=== PATIENT | female | born 1990 | race Caucasian/White ===

== ENCOUNTER 2020-05-18 13:50 | Inpatient (IN) ==
[2020-05-18] MEDS ORDERED: OXYTOCIN 30 UNITS/500 ML BAG IV PRN ×2 (14:05→22:31)
[2020-05-18] MEDS ORDERED: PENICILLIN G POTASSIUM 3 MU in DEXTROSE 5% 100 ML IV PRN (14:05)
[2020-05-18] MEDS ORDERED: LACTATED RINGER'S 1,000 ML IV PRN (14:05)
[2020-05-18] MEDS ORDERED: PENICILLIN G POTASSIUM 6 MU in DEXTROSE 5% 250 ML IV ONE (14:30)
[2020-05-18 14:38] LABS: Hematocrit (blood only) 32.5 % (37-47); Mean Corpuscular Hemoglobin 28.8 pg (25-34); Mean Corpuscular Hgb Conc 33.8 g/dL (32-36); Mean Corpuscular Volume 85.1 fL (80-100); Mean Platelet Volume 10.5 fL (7.4-10.4); Platelet Count 262 K/uL (130-400); RDW Coefficient of Variation 19.7 % (11.5-14.5); RDW Standard Deviation 61.5 fL (36.4-46.3); Red Blood Count 3.82 M/uL (4.2-5.4); White Blood Count 17.27 K/uL (4.8-10.8)
--- NOTE | 2020-05-18 14:54 | Obstetrical Progress Note ---
Date of Service May 18, 2020 Assessment & Plan Admission and Anticipated Discharge Date Admission Date: May 18, 2020 Subjective Met pt and spouse Reviewed PNC Pt was sent from office FHR; CAT1 Ctx 2-3mins VE /-2 by Nurse Bedside sono ; VT + GBS - Started on PCN Results & Data ([facility]) Vital Signs (Past 12 Hours) Vital Signs Pulse BP 05/18/20 14:08 85 137/67 05/18/20 13:57 88 125/85
[2020-05-18] MEDS ORDERED: BUTORPHANOL TARTRATE 1 MG/ML VIAL IV PRN (17:00)
--- NOTE | 2020-05-18 19:12 | Obstetrical Progress Note ---
Date of Service May 18, 2020 Assessment & Plan Admission and Anticipated Discharge Date Admission Date: May 18, 2020 Subjective Doing well FHR; CAT1 VE; 5/50/-2 Ctx; 1-4 AROM- Meconium Results & Data ([facility]) Vital Signs (Past 12 Hours) Vital Signs Temp Pulse Resp BP 05/18/20 18:30 18 05/18/20 18:00 18 05/18/20 16:59 18 05/18/20 14:47 18 05/18/20 14:30 36.4 C L 85 18 137/67 05/18/20 14:08 85 137/67 05/18/20 13:57 88 125/85 05/18/20 13:55 36.8 C 18
[2020-05-18] MEDS ORDERED: LIDOCAINE HCL 1% 20 ML VIAL ONE (21:14)
[2020-05-18] MEDS ORDERED: miSOPROStoL 200 MCG TAB ONE (22:14)
[2020-05-18] MEDS ORDERED: METHYLERGONOVINE MALEATE 0.2 MG/ML AMP ONE (22:15)
[2020-05-18] MEDS ORDERED: bisacodyL 10 MG SUPP PR PRN (22:31)
[2020-05-18] MEDS ORDERED: ACETAMINOPHEN 325 MG TAB PO PRN (22:31)
[2020-05-18] MEDS ORDERED: DIPHTHERIA/TETANUS/PERTUSSIS 0.5 ML SYR/VIAL IM ONE (22:31)
[2020-05-18] MEDS ORDERED: BENZOCAINE 20% AER SPR 82.5 GM CAN EXT PRN (22:31)
[2020-05-18] MEDS ORDERED: HYDROCORTISONE ACETATE 25 MG SUPP PR PRN (22:31)
[2020-05-18] MEDS ORDERED: miSOPROStoL 200 MCG TAB PR ONE (22:31)
[2020-05-18] MEDS ORDERED: METHYLERGONOVINE MALEATE 0.2 MG/ML AMP IM ONE (22:31)
[2020-05-18] MEDS ORDERED: SUPERCREAM 0.870% 15 GM JAR EXT PRN (22:31)
[2020-05-18 22:51] LABS: Base Excess Cord Venous Blood -4.5 mEq/L (-7.7-1.9); Cord Venous Blood HCO3 20 mmol/L (18.4-26.8); Cord Venous Blood PCO2 36 mmHg (30.4-57.2); Cord Venous Blood PO2 37 mmHg (14.1-43.3); Cord Venous Blood pH 7.36 (7.20-7.44)
[2020-05-18 22:58] LABS: Base Excess Cord Arterial Bld -6.5 mEq/L (-9-1.8); CO2 Cord Arterial Blood 66 mmHg (39.1-73.5); HCO3 Cord Arterial Blood 24 mmol/L (19.7-28.5); Oxygen Sat Cord Arterial Blood < 60.0 % (<60); PO2 Cord Arterial Blood 12 mmHg (4.1-31.7); pH Cord Arterial Blood 7.17 (7.1-7.38)
[2020-05-18] MEDS: IBUPROFEN 600 MG TAB PO PRN (23:27)
--- NOTE | 2020-05-19 01:52 | Delivery Summary ---
DATE OF OPERATION: 05/18/2020 The patient delivered a live infant in left occiput anterior presentation. There was a loose nuchal cord which was easily reduced. was delivered, placed on mother's abdomen. Cord clamped and cut and handed over to the pediatric team. There was a known meconium upon artificial rupture of membranes. Details of 's information is in the pediatric record. Cord blood and cord gases were obtained. Placenta spontaneously delivered. Inspection of the placenta shows a normal looking placenta with meconium. Inspection of the perineum showed a right paraurethral tear, repair was done with 3-0 Vicryl. Rest of the perineum was unremarkable. Rectal exam post repair showed good sphincter tone. Estimated blood loss is 450 mL All instruments I removed from the vagina and accounted for x2 including sponges, needles and retractors. Baby and mother are doing well in recovery. I attest to the content of the Intraoperative Record and any orders documented therein. Any exception s are noted below.
[2020-05-19 06:08] LABS: Hematocrit (blood only) 31.2 % (37-47); Hemoglobin 10.5 g/dL (12.0-16.0); Mean Corpuscular Hgb Conc 33.7 g/dL (32-36); Mean Corpuscular Volume 86.2 fL (80-100); Mean Platelet Volume 10.8 fL (7.4-10.4); Platelet Count 268 K/uL (130-400); RDW Coefficient of Variation 19.7 % (11.5-14.5); RDW Standard Deviation 62.3 fL (36.4-46.3); Red Blood Count 3.62 M/uL (4.2-5.4); White Blood Count 19.52 K/uL (4.8-10.8)
[2020-05-19] MEDS: PRENATAL VITAMIN 1 TAB PO SCH (07:51)
[2020-05-19] MEDS: IBUPROFEN 600 MG TAB PO PRN ×2 (07:51→20:06)
[2020-05-19] MEDS: DOCUSATE SODIUM 100 MG CAP PO SCH ×2 (07:51→20:07)
--- NOTE | 2020-05-19 09:13 | Obstetrical Progress Note ---
Date of Service May 19, 2020 Assessment & Plan Admission and Anticipated Discharge Date Admission Date: May 18, 2020 Subjective Patient is seen and examined. She feels well, no complaints. Ambulating without dizziness Voiding without difficulty Tolerating regular diet with out N&V Bleeding is minimal No fever/ chills/ CP/ SOB/ N&V/ Leg pain Bottle feeding without problems Vital Signs Temp Pulse Pulse Pulse Resp BP BP 05/19/20 07:20 36.8 C 93 H 16 125/76 05/19/20 04:00 36.8 C 92 H 18 117/78 05/19/20 00:45 36.8 C 91 H 16 121/83 05/18/20 23:50 36.7 C 85 85 18 119/83 119/83 05/18/20 23:35 36.7 C 88 88 18 116/81 116/81 05/18/20 23:20 36.7 C 88 88 18 129/79 129/79 05/18/20 23:05 36.7 C 96 H 96 H 18 126/61 126/61 05/18/20 23:01 36.6 C 92 H 92 H 18 122/67 122/67 05/18/20 22:49 36.6 C 111 H 111 H 18 116/65 116/65 05/18/20 22:35 101 H 122/59 L 05/18/20 22:30 101 H 18 122/59 L 05/18/20 22:26 114 H 136/65 05/18/20 22:20 103 H 129/66 05/18/20 22:15 117 H 18 138/64 05/18/20 22:14 116 H 128/60 05/18/20 22:13 103 H 133/62 05/18/20 22:12 126 H 132/62 05/18/20 22:11 117 H 138/64 05/18/20 21:29 96 H 135/70 Pulse Ox 05/19/20 07:20 98 05/19/20 04:00 05/19/20 00:45 05/18/20 23:50 05/18/20 23:35 05/18/20 23:20 05/18/20 23:05 05/18/20 23:01 05/18/20 22:49 05/18/20 22:35 05/18/20 22:30 05/18/20 22:26 05/18/20 22:20 05/18/20 22:15 05/18/20 22:14 05/18/20 22:13 05/18/20 22:12 05/18/20 22:11 05/18/20 21:29 Lab Results 05/18/20 05/18/20 05/18/20 Range/Units 14:27 22:08 22:08 WBC 17.27 H (4.8-10.8) K/uL RBC 3.82 L (4.2-5.4) M/uL Hgb 11.0 L (12.0-16.0) g/dL Hct 32.5 L (37-47) % MCV 85.1 (80-100) fL MCH 28.8 (25-34) pg MCHC 33.8 (32-36) g/dL RDW Std Deviation 61.5 H (36.4-46.3) fL RDW Coeff of Sonya 19.7 H (11.5-14.5) % Plt Count 262 (130-400) K/uL MPV 10.5 H (7.4-10.4) fL Cord ABG pH 7.17 (7.1-7.38) Cord ABG pCO2 66 (39.1-73.5) mmHg Cord ABG pO2 12 (4.1-31.7) mmHg Cord ABG HCO3 24 (19.7-28.5) mmol/L Cord ABG Base Excess -6.5 (-9-1.8) mEq/L Cord ABG O2 Sat < 60.0 (<60) % Cord VBG pH 7.36 (7.20-7.44) Cord VBG pCO2 36 (30.4-57.2) mmHg Cord VBG pO2 37 (14.1-43.3) mmHg Cord VBG HCO3 20 (18.4-26.8) mmol/L Cord VBG Base Excess -4.5 (-7.7-1.9) mEq/L Cord VBG O2 Sat 72.0 H (<68) % Barometric Pressure 735.6 735.5 mm/Hg Blood Gas Comments ALEJANDRO ALEJANDRO 05/19/20 Range/Units 05:39 WBC 19.52 H (4.8-10.8) K/uL RBC 3.62 L (4.2-5.4) M/uL Hgb 10.5 L (12.0-16.0) g/dL Hct 31.2 L (37-47) % MCV 86.2 (80-100) fL MCH 29.0 (25-34) pg MCHC 33.7 (32-36) g/dL RDW Std Deviation 62.3 H (36.4-46.3) fL RDW Coeff of Sonya 19.7 H (11.5-14.5) % Plt Count 268 (130-400) K/uL MPV 10.8 H (7.4-10.4) fL Cord ABG pH (7.1-7.38) Cord ABG pCO2 (39.1-73.5) mmHg Cord ABG pO2 (4.1-31.7) mmHg Cord ABG HCO3 (19.7-28.5) mmol/L Cord ABG Base Excess (-9-1.8) mEq/L Cord ABG O2 Sat (<60) % Cord VBG pH (7.20-7.44) Cord VBG pCO2 (30.4-57.2) mmHg Cord VBG pO2 (14.1-43.3) mmHg Cord VBG HCO3 (18.4-26.8) mmol/L Cord VBG Base Excess (-7.7-1.9) mEq/L Cord VBG O2 Sat (<68) % Barometric Pressure mm/Hg Blood Gas Comments PE: General: Alert, orientedx3, NAD Abd: soft, NT, fundus firm, below Umbilicus Perineum intact, Lochia rubra minimal Ext; NT, no edema, Homans sign neg/ neg AP: 29 yo s/p , ppd# 1 VSS Afebrile doing well Continue routine care All questions were answered D/C home tomorrow Results & Data ([facility]) Vital Signs (Past 12 Hours) Vital Signs Temp Pulse Pulse Pulse Resp BP BP 05/19/20 07:20 36.8 C 93 H 16 125/76 05/19/20 04:00 36.8 C 92 H 18 117/78 05/19/20 00:45 36.8 C 91 H 16 121/83 05/18/20 23:50 36.7 C 85 85 18 119/83 119/83 05/18/20 23:35 36.7 C 88 88 18 116/81 116/81 05/18/20 23:20 36.7 C 88 88 18 129/79 129/79 05/18/20 23:05 36.7 C 96 H 96 H 18 126/61 126/61 05/18/20 23:01 36.6 C 92 H 92 H 18 122/67 122/67 05/18/20 22:49 36.6 C 111 H 111 H 18 116/65 116/65 05/18/20 22:35 101 H 122/59 L 05/18/20 22:30 101 H 18 122/59 L 05/18/20 22:26 114 H 136/65 05/18/20 22:20 103 H 129/66 05/18/20 22:15 117 H 18 138/64 05/18/20 22:14 116 H 128/60 05/18/20 22:13 103 H 133/62 05/18/20 22:12 126 H 132/62 05/18/20 22:11 117 H 138/64 05/18/20 21:29 96 H 135/70 Pulse Ox 05/19/20 07:20 98 05/19/20 04:00 05/19/20 00:45 05/18/20 23:50 05/18/20 23:35 05/18/20 23:20 05/18/20 23:05 05/18/20 23:01 05/18/20 22:49 05/18/20 22:35 05/18/20 22:30 05/18/20 22:26 05/18/20 22:20 05/18/20 22:15 05/18/20 22:14 05/18/20 22:13 05/18/20 22:12 05/18/20 22:11 05/18/20 21:29
[2020-05-19] MEDS ORDERED: bisacodyL 5 MG TABEC PO SCH (20:00)
[2020-05-20 06:46] LABS: Basophils # (auto) 0.02 K/uL (0-0.2); Basophils % (auto) 0.2 %; Eosinophils # (auto) 0.11 K/uL (0-0.5); Hematocrit (blood only) 28.3 % (37-47); Hemoglobin 9.6 g/dL (12.0-16.0); Immature Granulocytes # (auto) 0.05 K/uL (0.00-0.02); Immature Granulocytes % (auto) 0.5 %; Lymphocytes # (auto) 3.29 K/uL (1.2-3.4); Lymphocytes % (auto) 31.2 %; Mean Corpuscular Hemoglobin 29.1 pg (25-34); Mean Corpuscular Hgb Conc 33.9 g/dL (32-36); Mean Corpuscular Volume 85.8 fL (80-100); Monocytes # (auto) 0.83 K/uL (0.11-0.59); Monocytes % (auto) 7.9 %; Neutrophils # (auto) 6.23 K/uL (1.4-6.5); Neutrophils % (auto) 59.2 %; Platelet Count 216 K/uL (130-400); RDW Coefficient of Variation 20.1 % (11.5-14.5); RDW Standard Deviation 62.1 fL (36.4-46.3); White Blood Count 10.53 K/uL (4.8-10.8)
[2020-05-20 07:27] LABS: Anisocytosis Present
[2020-05-20] MEDS: PRENATAL VITAMIN 1 TAB PO SCH (08:15)
[2020-05-20] MEDS: DOCUSATE SODIUM 100 MG CAP PO SCH (08:15)
[2020-05-20 09:09] VITALS: BP 113/78; PULSE 84; TEMP 98.1; O2SAT 98
--- NOTE | 2020-05-20 10:39 | Obstetrical Progress Note ---
Date of Service May 20, 2020 Assessment & Plan Admission and Anticipated Discharge Date Admission Date: May 18, 2020 Subjective PPD#2 stable plans for discharge Physical Exam Constitutional: WD/WN, vitals as above comfortable no edema neg Joey's for d/c Results & Data ([facility]) Vital Signs (Past 12 Hours) Vital Signs Temp Pulse Resp BP Pulse Ox 05/20/20 07:25 36.7 C 84 16 113/78 98 05/19/20 23:35 36.6 C 86 16 108/73 97 Laboratory Results Laboratory Results - last 72 hr 05/18/20 05/18/20 05/18/20 14:27 22:08 22:08 WBC 17.27 H RBC 3.82 L Hgb 11.0 L Hct 32.5 L MCV 85.1 MCH 28.8 MCHC 33.8 RDW Std Deviation 61.5 H RDW Coeff of Sonya 19.7 H Plt Count 262 MPV 10.5 H Immature Gran % (Auto) Neut % (Auto) Lymph % (Auto) [place] % (Auto) Eos % (Auto) Baso % (Auto) Neut # (Auto) Lymph # (Auto) [place] # (Auto) Eos # (Auto) Baso # (Auto) Immature Gran # (Auto) Anisocytosis Cord ABG pH 7.17 Cord ABG pCO2 66 Cord ABG pO2 12 Cord ABG HCO3 24 Cord ABG Base Excess -6.5 Cord ABG O2 Sat < 60.0 Cord VBG pH 7.36 Cord VBG pCO2 36 Cord VBG pO2 37 Cord VBG HCO3 20 Cord VBG Base Excess -4.5 Cord VBG O2 Sat 72.0 H Barometric Pressure 735.6 735.5 Blood Gas Comments FLAVIA ALEJANDRO 05/19/20 05/20/20 05:39 06:32 WBC 19.52 H 10.53 RBC 3.62 L 3.30 L Hgb 10.5 L 9.6 L Hct 31.2 L 28.3 L MCV 86.2 85.8 MCH 29.0 29.1 MCHC 33.7 33.9 RDW Std Deviation 62.3 H 62.1 H RDW Coeff of Sonya 19.7 H 20.1 H Plt Count 268 216 MPV 10.8 H 10.0 Immature Gran % (Auto) 0.5 Neut % (Auto) 59.2 Lymph % (Auto) 31.2 [place] % (Auto) 7.9 Eos % (Auto) 1.0 Baso % (Auto) 0.2 Neut # (Auto) 6.23 Lymph # (Auto) 3.29 [place] # (Auto) 0.83 H Eos # (Auto) 0.11 Baso # (Auto) 0.02 Immature Gran # (Auto) 0.05 H Anisocytosis Present Cord ABG pH Cord ABG pCO2 Cord ABG pO2 Cord ABG HCO3 Cord ABG Base Excess Cord ABG O2 Sat Cord VBG pH Cord VBG pCO2 Cord VBG pO2 Cord VBG HCO3 Cord VBG Base Excess Cord VBG O2 Sat Barometric Pressure Blood Gas Comments
== END 2020-05-20 12:10 | disposition home or self-care (01) | DRG 807 ==
LOC: OPB 13:50 → 4S1 13:51 → 4S2 05-19 00:49
DX: Z3A.39 39 weeks gestation of pregnancy; O69.81X0 Labor and delivery complicated by cord around neck, without compression, not applicable or unspecified; O71.82 Other specified trauma to perineum and vulva; O99.824 Streptococcus B carrier state complicating childbirth; Z37.0 Single live birth; O77.0 Labor and delivery complicated by meconium in amniotic fluid